=== PATIENT | male | born 1960 | race Two or more races ===

== ENCOUNTER 2020-03-23 09:00 | Outpatient (CLI) | payer OTHER | END 2020-03-23 23:59 | disposition home or self-care (01) | LOC: LAB 09:00 | PROVIDERS: ATTEND Specialist | DX: Z01.812 Encounter for preprocedural laboratory examination (principal); Z20.822 Contact with and (suspected) exposure to COVID-19 | CPT/HCPCS: 87426; C9803; U0003 ==

== ENCOUNTER 2020-03-30 06:07 | Day surgery (SDC) | payer OTHER ==
[2020-03-30] MEDS ORDERED: BACITRACIN 50000 UNITS/VIAL ONE (07:41)
[2020-03-30] MEDS ORDERED: BUPIVACAINE 0.25% 75 MG/30 ML VIAL ONE (07:41)
[2020-03-30] MEDS ORDERED: LIDOCAINE 2% 50 ML MDV IJ ONE (07:52)
[2020-03-30] MEDS ORDERED: LIDOCAINE 2%-EPI 1:200,000 20 ML VIAL IJ ONE (07:52)
== END 2020-03-30 09:40 | disposition home or self-care (01) ==
LOC: DS 06:07
PROVIDERS: ATTEND Specialist
DX: M65.332 Trigger finger, left middle finger (principal)
CPT/HCPCS: 26055; A4217; J0690; J2704; J3490 ×2